=== PATIENT | male | born 1990 | race Caucasian/White ===

== ENCOUNTER 2023-03-02 03:00 | Inpatient (IN) | payer BC, OTHER ==
[~2023-03-02] VITALS: Ht 180.3 cm; Wt 79.4 kg
[2023-03-02] MEDS ORDERED: ONDANSETRON HCL/PF 4 MG/2 ML VIAL ONE (03:21)
[2023-03-02] MEDS ORDERED: MORPHINE SULFATE INJ 4 MG/ML DISP.SYRIN ONE ×4 (03:22→11:32)
[2023-03-02] MEDS ORDERED: ONDANSETRON HCL/PF 4 MG/2 ML VIAL IV ONE (03:30)
[2023-03-02] MEDS ORDERED: MORPHINE SULFATE INJ 2 MG/ML DISP.SYRIN IV ONE ×3 (03:30→11:30)
[2023-03-02] MEDS ORDERED: DICY10CA37 PO (04:50)
[2023-03-02] MEDS ORDERED: ONDA4TAB11 PO (04:50)
[2023-03-02] MEDS ORDERED: IV NS 0.9% 500 ML BAG IV ONE (07:30)
[2023-03-02 07:51] LABS: BASOPHILS % (AUTO) 0.3 % (0.0-2.0); EOSINOPHILS % (AUTO) 0.5 % (0.0-6.0); HEMATOCRIT 42 % (39-51); HEMOGLOBIN 14.3 g/dL (13.5-17.5); LYMPHOCYTES % (AUTO) 24.1 % (20.0-44.0); MEAN CORPUSCULAR HEMOGLOBIN 29 PG (26.0-33.0); MEAN CORPUSCULAR HGB CONC 34 g/dl (31.0-36.0); MEAN CORPUSCULAR VOLUME 84 fL (80-96); MONOCYTES # (AUTO) 0.7 K/uL (0.1-1.30); MONOCYTES % (AUTO) 8.6 % (2.0-12.0); NEUTROPHILS # (AUTO) 5.4 K/uL (1.8-8.9); NEUTROPHILS % (AUTO) 66.5 % (43.0-81.0); PLATELET COUNT (AUTO) 275 K/uL (150-450); RED BLOOD CELL COUNT(AUTO) 4.96 MIL/uL (4.5-6.0); RED CELL DISTRIBUTION WIDTH 13.9 % (11.5-15.0); WHITE BLOOD COUNT (AUTO) 8.1 K/uL (4.3-11.0)
[2023-03-02 07:58] LABS: CALCIUM, SERUM 9.5 mg/dL (8.5-10.1); CREATININE 0.8 mg/dL (0.6-1.3); INR 1.04 (0.91-1.10); PARTIAL THROMBOPLASTIN TIME 28.4 SEC (24.3-34.3); POTASSIUM 3.4 mmol/L (3.5-5.1); PROTHROMBIN TIME 10.9 SECS (9.2-11.1)
[2023-03-02 08:04] LABS: ALBUMIN 4.4 g/dL (3.4-5.0); BILIRUBIN,DIRECT 0.2 mg/dL (0.0-0.2); BILIRUBIN,TOTAL 0.8 mg/dL (0.2-1.0); TOTAL PROTEIN, SERUM 8.1 g/dL (6.4-8.2)
[2023-03-02 16:00] VITALS: BP 133/94; TEMP 97.8; O2SAT 100
[2023-03-02] MEDS ORDERED: Z GUARD REMEDY 4 OZ OINT TP PRN (16:00)
[2023-03-02] MEDS ORDERED: ZOLPIDEM TARTRATE 5 MG TABLET PO PRN (16:00)
[2023-03-02] MEDS ORDERED: MAGNESIUM HYDROXIDE 30 ML UDC PO PRN (16:00)
[2023-03-02] MEDS ORDERED: MAG HYDROX/AL HYDROX/SIMETH 30 ML UDC PO PRN (16:00)
[2023-03-02] MEDS ORDERED: ACETAMINOPHEN 325 MG TABLET PO PRN (16:00)
[2023-03-02] MEDS ORDERED: Potassium Chloride 20 MEQ in IV D5/0.45 NACL 1,000 ML IV PRN (16:00)
[2023-03-02] MEDS: MORPHINE SULFATE INJ 4 MG/ML DISP.SYRIN IV PRN ×2 (16:41→23:10)
[2023-03-02 20:00] VITALS: BP 126/91; TEMP 98.2; O2SAT 99
[2023-03-03] MEDS: MORPHINE SULFATE INJ 4 MG/ML DISP.SYRIN IV PRN ×4 (03:57→19:44)
[2023-03-03] MEDS: IV D5/0.45 NACL 1,000 ML IV PRN (04:02)
[2023-03-03] MEDS: ONDANSETRON HCL/PF 4 MG/2 ML VIAL IVP PRN ×2 (04:18→13:31)
[2023-03-03 06:21] LABS: BASOPHILS % (AUTO) 0.3 % (0.0-2.0); EOSINOPHILS % (AUTO) 0.2 % (0.0-6.0); HEMATOCRIT 42 % (39-51); HEMOGLOBIN 14.2 g/dL (13.5-17.5); LYMPHOCYTES # (AUTO) 1.2 K/uL (0.8-4.8); LYMPHOCYTES % (AUTO) 11.7 % (20.0-44.0); MEAN CORPUSCULAR HEMOGLOBIN 28 PG (26.0-33.0); MEAN CORPUSCULAR HGB CONC 34 g/dl (31.0-36.0); MEAN CORPUSCULAR VOLUME 85 fL (80-96); MONOCYTES # (AUTO) 0.7 K/uL (0.1-1.30); MONOCYTES % (AUTO) 6.8 % (2.0-12.0); NEUTROPHILS # (AUTO) 8.6 K/uL (1.8-8.9); PLATELET COUNT (AUTO) 288 K/uL (150-450); RED BLOOD CELL COUNT(AUTO) 4.99 MIL/uL (4.5-6.0); RED CELL DISTRIBUTION WIDTH 14.1 % (11.5-15.0); WHITE BLOOD COUNT (AUTO) 10.7 K/uL (4.3-11.0)
[2023-03-03 06:36] LABS: CALCIUM, SERUM 9.1 mg/dL (8.5-10.1); CREATININE 0.7 mg/dL (0.6-1.3); PHOSPHORUS 3.6 mg/dL (2.5-4.9); POTASSIUM 3.5 mmol/L (3.5-5.1)
[2023-03-03 08:00] VITALS: BP 140/98; TEMP 97.9; O2SAT 99
[2023-03-03] MEDS: PANTOPRAZOLE 40 MG VIAL IV SCH (09:20)
[2023-03-03 10:00] VITALS: BP 140/98; TEMP 97.9; O2SAT 99
[2023-03-03] MEDS ORDERED: LORAZEPAM INJ 2 MG/ML VIAL IV PRN (14:00)
[2023-03-03 16:00] VITALS: BP 144/91; TEMP 97.3; O2SAT 99
[2023-03-03] MEDS: LORAZEPAM INJ 2 MG/ML VIAL IV PRN (18:32)
[2023-03-03 20:00] VITALS: BP 133/99; TEMP 98.2; O2SAT 97
[2023-03-04] MEDS: MORPHINE SULFATE INJ 4 MG/ML DISP.SYRIN IV PRN ×6 (00:29→21:31)
[2023-03-04] MEDS: IV D5/0.45 NACL 1,000 ML IV PRN ×3 (04:14→21:28)
[2023-03-04 08:00] VITALS: BP 129/98; TEMP 98.8; O2SAT 96
[2023-03-04] MEDS: PANTOPRAZOLE 40 MG VIAL IV SCH (09:12)
[2023-03-04] MEDS: ONDANSETRON HCL/PF 4 MG/2 ML VIAL IVP PRN ×3 (09:12→20:16)
[2023-03-04] MEDS ORDERED: DIATR MEGLU/DIATRIZOATE SODIUM 120 ML BOTTLE (GASTROGRAPHIN) ONE (10:55)
[2023-03-04 16:00] VITALS: BP 121/81; TEMP 98.4; O2SAT 96
[2023-03-04 19:05] VITALS: BP 105/82; TEMP 98.2; O2SAT 96
[2023-03-04 20:00] VITALS: BP 105/82; TEMP 98.2; O2SAT 96
[2023-03-04] MEDS: METOCLOPRAMIDE HCL 10 MG/2 ML VIAL IV PRN (22:13)
[2023-03-05] MEDS: MORPHINE SULFATE INJ 4 MG/ML DISP.SYRIN IV PRN ×4 (01:36→14:27)
[2023-03-05] MEDS: ONDANSETRON HCL/PF 4 MG/2 ML VIAL IVP PRN ×2 (02:52→17:10)
[2023-03-05] MEDS: IV D5/0.45 NACL 1,000 ML IV PRN ×2 (05:12→14:20)
[2023-03-05 08:00] VITALS: BP 133/93; TEMP 98.4; O2SAT 97
[2023-03-05] MEDS: PANTOPRAZOLE 40 MG VIAL IV SCH (08:41)
[2023-03-05] MEDS: LORAZEPAM INJ 2 MG/ML VIAL IV PRN (11:24)
[2023-03-05] MEDS: METOCLOPRAMIDE HCL 10 MG/2 ML VIAL IV PRN (14:27)
[2023-03-05 16:00] VITALS: BP 119/92; TEMP 98.6; O2SAT 98
== END 2023-03-05 18:10 | disposition short-term general hospital (02) | DRG 390 ==
LOC: ER 03:01 → MED 13:38
PROVIDERS: ADMIT Student in an Organized Health Care Education/Training Program; ATTEND Internal Medicine
DX: K56.600 Partial intestinal obstruction, unspecified as to cause (principal); E87.6 Hypokalemia; Z93.3 Colostomy status; Z90.49 Acquired absence of other specified parts of digestive tract; Z87.19 Personal history of other diseases of the digestive system
CPT/HCPCS: 36415; 71045-TC; 74250-TC; 80048-TC; 80076-TC; 83690-TC; 83735-TC; 84100-TC; 85025-TC; 85730-TC; C9113; G0378; J2060; J2270; J2405; J2765; J3490; J7040; Q9963